=== PATIENT | male | born 1970 | race Caucasian/White ===

== ENCOUNTER 2024-06-26 23:37 | Emergency (ER) | payer BC ==
[2024-06-26 23:42] VITALS: RESP 18; TEMP 98.4; BMI 27.8
[2024-06-27] MEDS ORDERED: amLODIPine BESYLATE 5 MG TABLET (FP) ONE (00:08)
[2024-06-27] MEDS: amLODIPine BESYLATE 5 MG TABLET (FP) PO ONE (00:13)
[2024-06-27 00:17] LABS: ABSOLUTE IMMATURE GRANULOCYTES 0.03 x10^3/uL (0.0-0.031); BASOPHILS # 0.05 x10^3/uL (0.01-0.08); EOSINOPHIL % 4.6 % (0.8-7.0); EOSINOPHILS # 0.38 x10^3/uL (0.04-0.54); HEMATOCRIT 47.5 % (40.1-51.0); HEMOGLOBIN 15.9 g/dL (13.7-17.5); MCHC 33.5 g/dl (32.3-36.5); MEAN CELL VOLUME 87.5 fl (79.0-92.2); MEAN PLT VOLUME 9.7 fl (9.4-12.4); MONOCYTE # 0.69 x10^3/uL (0.30-0.82); MONOCYTE % 8.3 % (5.3-12.2); PLATELET COUNT 210 x10^3/uL (163-337); RDW 11.6 % (12.2-16.1)
[2024-06-27 00:38] LABS: POTASSIUM 3.7 mmol/L (3.5-5.1)
[2024-06-27 00:39] LABS: BLOOD UREA NITROGEN 16.1 mg/dL (7-18); CALCIUM 9.4 mg/dL (8.5-10.1); MAGNESIUM 2.1 mg/dL (1.8-2.4)
[2024-06-27 00:41] LABS: ALBUMIN 4.1 g/dl (3.4-5.0)
[2024-06-27 00:44] LABS: CREATININE 1.1 mg/dL (0.55-1.3)
[2024-06-27 00:45] LABS: BILIRUBIN,TOTAL 1.6 mg/dL (0.2-1); TOT PROT 7.4 g/dl (6.4-8.2)
[2024-06-27 00:51] VITALS: BP 154/95; PULSE 88
[2024-06-27 01:11] LABS: INR 1.08 (0.83-1.09); PROTHROMBIN TIME (PATIENT) 11.9 SEC (9.7-13.0)
[2024-06-27 01:13] LABS: ACTIVATED PTT 32.8 SECONDS (25.2-36.5)
[2024-06-27 01:36] LABS: HCV DIAGNOSTIC IN-HOUSE W/RFLX NON-REACTIVE (NONREACTIVE)
[2024-06-27 01:37] LABS: HIV INTERPRETATION NEGATIVE (NEGATIVE)
== END 2024-06-27 02:00 | disposition home or self-care (01) ==
LOC: JER 23:37
DX: I10 Essential (primary) hypertension (principal); R51.9 Headache, unspecified; R42 Dizziness and giddiness; Z63.79 Other stressful life events affecting family and household
CPT/HCPCS: 36415; 71045-TC-FY; 80053; 83735; 84484; 85025; 85610; 85730; 86803; 86850; 86900; 86901; 87389; 93005; 93010; 99285-25